=== PATIENT | male | born 1945 | race Two or more races ===

== ENCOUNTER 2018-05-15 10:50 | Inpatient (IN) | payer MEDICARE, MEDICAID ==
[~2018-05-15] VITALS: Ht 172.7 cm; Wt 97.3 kg
[2018-05-15] MEDS ORDERED: ONDANSETRON HCL 4MG/2ML INJ IV STA (11:47)
[2018-05-15] MEDS ORDERED: ASPIRIN 81MG TABLET PO ONE (12:00)
[2018-05-15] MEDS ORDERED: NITROGLYCERIN OINT 1GM/INCH UDPKT TD ONE (12:00)
[2018-05-15] MEDS ORDERED: FENTANYL CITRATE/PF 50MCG/ML 2ML VIAL IV ONE (12:00)
[2018-05-15 12:13] LABS: BASOPHILS % 0.2 % (0.0-2.0); EOSINOPHILS % 0.9 % (0.0-5.0); HEMATOCRIT. 43.7 % (42.0-52.0); HEMOGLOBIN. 14.7 g/dL (14.0-18.0); LYMPHOCYTES % 15.3 % (20.0-50.0); MEAN CORPUSCULAR VOLUME 88.9 fL (80.0-94.0); MEAN PLATELET VOLUME 10.8 fl (7.4-10.4); MONOCYTES % 7.9 % (2.0-8.0); NEUTROPHILS % 75.7 % (40.0-76.0); PLATELET 207 x1000/uL (130-400); RED BLOOD CELL COUNT 4.91 mill/uL (4.7-6.1); RED CELL DISTRIBUTION WIDTH 14.4 % (11.6-14.6)
[2018-05-15 12:19] LABS: CHLORIDE 106 mEq/L (98-107)
[2018-05-15 12:22] LABS: INR 1.1; PROTHROMBIN TIME 10.8 sec (9.1-11.1)
[2018-05-15 12:29] LABS: T4 FREE 1.13 ng/dL (0.76-1.46)
[2018-05-15] MEDS ORDERED: FUROSEMIDE 20MG/2ML VIAL IVP ONE (13:15)
[2018-05-15] MEDS ORDERED: GUAIFENESIN 200MG/10ML SUGAR FREE UDC PO PRN ×2 (13:45→15:45)
[2018-05-15] MEDS ORDERED: DIPHENHYDRAMINE 50MG/ML VIAL IV PRN ×2 (13:45→15:45)
[2018-05-15] MEDS ORDERED: ONDANSETRON HCL 4MG/2ML INJ IV PRN ×2 (13:45→15:45)
[2018-05-15] MEDS ORDERED: MAGNESIUM/ALUMINUM HYDROXIDE/SIMETHICONE 30ML UDC PO PRN ×2 (13:45→15:45)
[2018-05-15] MEDS ORDERED: CLONIDINE 0.1MG TABLET PO PRN ×2 (13:45→15:45)
[2018-05-15] MEDS ORDERED: LORAZEPAM 2MG/ML CPJ IV PRN (13:45)
[2018-05-15] MEDS ORDERED: DOCUSATE SODIUM 100MG CAPSULE PO PRN ×2 (13:45→15:45)
[2018-05-15] MEDS ORDERED: IPRATROPIUM/ALBUTEROL 0.5-3(2.5)MG/3ML NEB INH PRN ×2 (13:45→15:45)
[2018-05-15] MEDS ORDERED: ENOXAPARIN 40MG/0.4ML SYR SUBCUT SCH (13:45)
[2018-05-15] MEDS ORDERED: ACETAMINOPHEN 325MG TABLET PO PRN ×2 (13:45→15:45)
[2018-05-15] MEDS ORDERED: HYDROCODONE/ACETAMINOPHEN 10/325MG TABLET PO PRN (13:45)
[2018-05-15] MEDS ORDERED: HYDROMORPHONE HCL/PF 2MG/ML CPJ IV PRN (13:45)
[2018-05-15] MEDS ORDERED: DEXTROSE 50% WATER 50ML SYRINGE IV PRN ×2 (13:45→15:45)
[2018-05-15] MEDS ORDERED: SODIUM CHLORIDE 0.9% INJ 3ML FLUSH IVF SCH (14:00)
[2018-05-15 15:13] LABS: *AMPHETAMINES SCREEN URINE NEGATIVE (NEGATIVE); *BARBITURATES SCREEN URINE NEGATIVE (NEGATIVE); CANNABINOID URINE SCREEN NEGATIVE (NEGATIVE); OPIATES URINE SCREEN NEGATIVE (NEGATIVE); PHENCYCLIDINE URINE SCREEN NEGATIVE (NEGATIVE)
[2018-05-15 15:14] LABS: *BENZODIAZEPINES SCREEN URINE NEGATIVE (NEGATIVE); *COCAINE SCREEN URINE NEGATIVE (NEGATIVE); METHADONE URINE SCREEN NEGATIVE (NEGATIVE)
[2018-05-15 15:43] VITALS: BP 125/91
[2018-05-15] MEDS ORDERED: LORAZEPAM 0.5MG TABLET PO PRN (15:45)
[2018-05-15] MEDS ORDERED: HYDROCODONE/ACETAMINOPHEN 5/325MG TABLET PO PRN (15:45)
[2018-05-15] MEDS ORDERED: NA PHOS,M-B/NA PHOS,DI-BA ENEMA 118ML PR PRN (15:45)
[2018-05-15] MEDS ORDERED: ACETAMINOPHEN 650MG SUPP PR PRN (15:45)
[2018-05-15 16:00] VITALS: BP 125/91
[2018-05-15] MEDS ORDERED: ATOR-2 MT (16:01)
[2018-05-15] MEDS ORDERED: FURO20TA4 MT (16:01)
[2018-05-15] MEDS ORDERED: QUIN10TA28 MT (16:01)
[2018-05-15] MEDS ORDERED: DICL25TA2 MT (16:01)
[2018-05-15] MEDS ORDERED: ASPI-1158 MT (16:01)
[2018-05-15] MEDS ORDERED: METO-539 MT (16:01)
[2018-05-15] MEDS ORDERED: METF-815 MT (16:02)
[2018-05-15 16:13] VITALS: BP 125/91
[2018-05-15] MEDS: BLOOD SUGAR DIAGNOSTIC STRIP TEST SCH ×2 (16:54→20:55)
[2018-05-15] MEDS ORDERED: BLOOD SUGAR DIAGNOSTIC STRIP TEST SCH (17:00)
[2018-05-15] MEDS: ENOXAPARIN 30MG/0.3ML SYR SUBCUT SCH (17:27)
[2018-05-15] MEDS: INSULIN LISPRO 100 UNITS/ML SUBCUT SCH ×2 (17:28→20:55)
[2018-05-15] MEDS: PANTOPRAZOLE 40MG DR TABLET PO SCH (17:28)
[2018-05-15] MEDS ORDERED: INSULIN LISPRO 100 UNITS/ML SUBCUT SCH (17:40)
[2018-05-15 17:58] LABS: CREATINE KINASE 65 IU/L (39-308); CREATINE KINASE MB FRACTION < 1.0 ng/mL (0.5-3.6)
[2018-05-15 20:00] VITALS: BP 120/67
[2018-05-15] MEDS: AMLODIPINE 5MG TABLET PO SCH (21:15)
[2018-05-16] VITALS: BP 97/56
[2018-05-16 04:00] VITALS: BP 118/66
[2018-05-16] MEDS: ENOXAPARIN 30MG/0.3ML SYR SUBCUT SCH ×2 (05:10→16:19)
[2018-05-16] MEDS: PANTOPRAZOLE 40MG DR TABLET PO SCH (06:10)
[2018-05-16] MEDS: INSULIN LISPRO 100 UNITS/ML SUBCUT SCH ×4 (06:13→21:04)
[2018-05-16] MEDS: BLOOD SUGAR DIAGNOSTIC STRIP TEST SCH ×4 (06:13→20:51)
[2018-05-16 06:34] LABS: BASOPHILS % 0.5 % (0.0-2.0); EOSINOPHILS % 0.6 % (0.0-5.0); HEMATOCRIT. 40.6 % (42.0-52.0); HEMOGLOBIN. 13.8 g/dL (14.0-18.0); LYMPHOCYTES % 17.8 % (20.0-50.0); MEAN CORPUSCULAR HEMOGLOBIN 30.3 pg (28.0-32.0); MEAN PLATELET VOLUME 11.2 fl (7.4-10.4); MONOCYTES % 9.5 % (2.0-8.0); NEUTROPHILS % 71.6 % (40.0-76.0); PLATELET 168 x1000/uL (130-400); RED BLOOD CELL COUNT 4.56 mill/uL (4.7-6.1); RED CELL DISTRIBUTION WIDTH 14.7 % (11.6-14.6)
[2018-05-16 06:41] LABS: CHLORIDE 104 mEq/L (98-107)
[2018-05-16 06:53] LABS: HDL CHOLESTEROL 36 mg/dL (40-59); LDL CHOLESTEROL 82 mg/dL (5-100)
[2018-05-16 07:12] LABS: T4 FREE 1.21 ng/dL (0.76-1.46)
[2018-05-16 08:00] VITALS: BP 96/64
[2018-05-16] MEDS: AMLODIPINE 5MG TABLET PO SCH ×2 (08:45→11:44)
[2018-05-16] MEDS: ASPIRIN 81MG EC TABLET PO SCH (08:48)
[2018-05-16] MEDS ORDERED: ASPIRIN 81MG EC TABLET PO SCH (09:00)
[2018-05-16 11:00] LABS: CLARITY URINE CLEAR (CLEAR); COLOR URINE YELLOW (YELLOW); KETONES URINE NEGATIVE (NEGATIVE); LEUKOCYTE ESTERASE URINE NEGATIVE (NEGATIVE); NITRITE URINE NEGATIVE (NEGATIVE); OCCULT BLOOD URINE NEGATIVE (NEGATIVE); PROTEIN URINE NEGATIVE (NEGATIVE); SPECIFIC GRAVITY URINE 1.008 (1.005-1.030); UROBILINOGEN URINE 0.2 E.U./dL (0.2-1.0)
[2018-05-16 12:00] VITALS: BP 140/92
[2018-05-16] MEDS: METOPROLOL TARTRATE 25MG TABLET PO SCH ×2 (13:06→21:02)
[2018-05-16] MEDS: LOSARTAN POTASSIUM 25 MG TABLET PO SCH (13:07)
[2018-05-16 15:58] LABS: *AMPHETAMINES SCREEN URINE NEGATIVE (NEGATIVE); *BARBITURATES SCREEN URINE NEGATIVE (NEGATIVE); *BENZODIAZEPINES SCREEN URINE NEGATIVE (NEGATIVE)
[2018-05-16 15:59] LABS: *COCAINE SCREEN URINE NEGATIVE (NEGATIVE); CANNABINOID URINE SCREEN NEGATIVE (NEGATIVE); METHADONE URINE SCREEN NEGATIVE (NEGATIVE); OPIATES URINE SCREEN NEGATIVE (NEGATIVE); PHENCYCLIDINE URINE SCREEN NEGATIVE (NEGATIVE)
[2018-05-16 16:00] VITALS: BP 138/92
[2018-05-16 20:00] VITALS: BP 132/80
[2018-05-16] MEDS: ATORVASTATIN CALCIUM 20MG TABLET PO SCH (21:02)
[2018-05-17] VITALS: BP 114/67
[2018-05-17 04:00] VITALS: BP 122/69
[2018-05-17] MEDS: BLOOD SUGAR DIAGNOSTIC STRIP TEST SCH ×4 (05:55→20:03)
[2018-05-17] MEDS: ENOXAPARIN 30MG/0.3ML SYR SUBCUT SCH ×2 (06:04→19:03)
[2018-05-17] MEDS: PANTOPRAZOLE 40MG DR TABLET PO SCH (06:04)
[2018-05-17] MEDS: INSULIN LISPRO 100 UNITS/ML SUBCUT SCH ×4 (06:08→20:10)
[2018-05-17 07:32] LABS: BASOPHILS % 0.3 % (0.0-2.0); EOSINOPHILS % 0.7 % (0.0-5.0); HEMATOCRIT. 43.8 % (42.0-52.0); HEMOGLOBIN. 14.7 g/dL (14.0-18.0); LYMPHOCYTES % 16.3 % (20.0-50.0); MEAN CORPUSCULAR VOLUME 89.3 fL (80.0-94.0); MEAN PLATELET VOLUME 11.3 fl (7.4-10.4); MONOCYTES % 6.6 % (2.0-8.0); NEUTROPHILS % 76.1 % (40.0-76.0); PLATELET 169 x1000/uL (130-400); RED BLOOD CELL COUNT 4.91 mill/uL (4.7-6.1); RED CELL DISTRIBUTION WIDTH 14.5 % (11.6-14.6)
[2018-05-17 07:38] LABS: CHLORIDE 105 mEq/L (98-107)
[2018-05-17 07:57] LABS: HDL CHOLESTEROL 35 mg/dL (40-59); LDL CHOLESTEROL 80 mg/dL (5-100)
[2018-05-17 08:00] VITALS: BP 121/72
[2018-05-17] MEDS: LOSARTAN POTASSIUM 25 MG TABLET PO SCH (09:00)
[2018-05-17] MEDS: AMLODIPINE 5MG TABLET PO SCH (09:00)
[2018-05-17] MEDS: ASPIRIN 81MG EC TABLET PO SCH (09:25)
[2018-05-17] MEDS: METOPROLOL TARTRATE 25MG TABLET PO SCH ×2 (09:25→20:07)
[2018-05-17 11:51] VITALS: BP 130/70
[2018-05-17 16:00] VITALS: BP 130/71
[2018-05-17 20:00] VITALS: BP 115/61
[2018-05-17] MEDS: ATORVASTATIN CALCIUM 20MG TABLET PO SCH (20:07)
[2018-05-18] VITALS (9 sets, daily range): BP systolic 110–143; BP diastolic 63–94
[2018-05-18] MEDS: BLOOD SUGAR DIAGNOSTIC STRIP TEST SCH ×4 (05:21→20:50)
[2018-05-18] MEDS: PANTOPRAZOLE 40MG DR TABLET PO SCH (06:10)
[2018-05-18] MEDS: INSULIN LISPRO 100 UNITS/ML SUBCUT SCH ×4 (06:17→20:53)
[2018-05-18 07:47] LABS: BASOPHILS % 0.5 % (0.0-2.0); EOSINOPHILS % 1.2 % (0.0-5.0); HEMATOCRIT. 43.8 % (42.0-52.0); HEMOGLOBIN. 14.9 g/dL (14.0-18.0); LYMPHOCYTES % 23.1 % (20.0-50.0); MEAN CORPUSCULAR HEMOGLOBIN 30.2 pg (28.0-32.0); MEAN CORPUSCULAR VOLUME 88.7 fL (80.0-94.0); MEAN PLATELET VOLUME 11.2 fl (7.4-10.4); MONOCYTES % 8.9 % (2.0-8.0); NEUTROPHILS % 66.3 % (40.0-76.0); PLATELET 165 x1000/uL (130-400); RED BLOOD CELL COUNT 4.94 mill/uL (4.7-6.1); RED CELL DISTRIBUTION WIDTH 14.5 % (11.6-14.6)
[2018-05-18] MEDS ORDERED: DEXT 5%/0.45% NACL 1000ML 1,000 ML IV SCH (08:00)
[2018-05-18] MEDS ORDERED: DEXT 5%/0.9% NACL 500 ML IV SCH (08:00)
[2018-05-18 08:25] LABS: CHLORIDE 106 mEq/L (98-107)
[2018-05-18] MEDS: ASPIRIN 81MG EC TABLET PO SCH (09:00)
[2018-05-18] MEDS: LOSARTAN POTASSIUM 25 MG TABLET PO SCH (09:00)
[2018-05-18] MEDS: AMLODIPINE 5MG TABLET PO SCH (09:00)
[2018-05-18] MEDS: METOPROLOL TARTRATE 25MG TABLET PO SCH ×2 (09:00→20:52)
[2018-05-18] MEDS ORDERED: LIDOCAINE HCL 1% 20ML VIAL (Pyxis) INJ ONE (11:15)
[2018-05-18] MEDS ORDERED: IODIXANOL 320MG/ML 100 ML BOTTLE IV ONE ×2 (11:16→12:24)
[2018-05-18] MEDS ORDERED: ASPIRIN/SOD BICARB/CITRIC ACID 324MG TAB EFF ONE (11:16)
[2018-05-18] MEDS ORDERED: FENTANYL CITRATE/PF 50MCG/ML 2ML VIAL ONE (11:38)
[2018-05-18] MEDS ORDERED: MIDAZOLAM HCL 2 MG/2 ML VIAL ONE (11:38)
[2018-05-18] MEDS ORDERED: IOHEXOL-300 100 ML BOTTLE ONE (12:09)
[2018-05-18] MEDS ORDERED: ATROPINE SULFATE 1MG/10ML SYR IV PRN (12:30)
[2018-05-18] MEDS ORDERED: MORPHINE SULFATE 10 MG/ML CPJ IV PRN (12:30)
[2018-05-18] MEDS ORDERED: CLOPIDOGREL 75MG TABLET PO NR (12:30)
[2018-05-18] MEDS ORDERED: ACETAMINOPHEN 325MG TABLET PO PRN (12:30)
[2018-05-18] MEDS: SODIUM CHLORIDE 0.45% 1,000 ML IV NR ×2 (12:49→20:51)
[2018-05-18] MEDS ORDERED: HEPARIN SODIUM 1,000 UNIT/1ML VIAL IV ONE (15:15)
[2018-05-18] MEDS ORDERED: ADENOSINE 12MCG/ML 10ML VIAL (CATH LAB) IV ONE (16:06)
[2018-05-18] MEDS ORDERED: NICARDIPINE 100MCG/ML 10ML VIAL (CATH LAB) IV ONE (16:06)
[2018-05-18] MEDS ORDERED: NITROGLYCERIN 50MCG/ML 10ML VIAL (CATH LAB) IV ONE (16:06)
[2018-05-18] MEDS: ATORVASTATIN CALCIUM 20MG TABLET PO SCH (20:50)
[2018-05-19] VITALS (8 sets, daily range): BP systolic 110–161; BP diastolic 65–85
[2018-05-19 05:53] LABS: CHLORIDE 105 mEq/L (98-107)
[2018-05-19 06:04] LABS: BASOPHILS % 0.4 % (0.0-2.0); EOSINOPHILS % 2.4 % (0.0-5.0); HEMATOCRIT. 39.9 % (42.0-52.0); HEMOGLOBIN. 13.7 g/dL (14.0-18.0); LYMPHOCYTES % 13.6 % (20.0-50.0); MEAN CORPUSCULAR HEMOGLOBIN 30.4 pg (28.0-32.0); MEAN CORPUSCULAR VOLUME 88.6 fL (80.0-94.0); MEAN PLATELET VOLUME 11.2 fl (7.4-10.4); MONOCYTES % 10.5 % (2.0-8.0); NEUTROPHILS % 73.1 % (40.0-76.0); PLATELET 157 x1000/uL (130-400); RED BLOOD CELL COUNT 4.51 mill/uL (4.7-6.1); RED CELL DISTRIBUTION WIDTH 14.2 % (11.6-14.6)
[2018-05-19] MEDS: SODIUM CHLORIDE 0.45% 1,000 ML IV NR (07:04)
[2018-05-19] MEDS: PANTOPRAZOLE 40MG DR TABLET PO SCH (07:06)
[2018-05-19] MEDS: BLOOD SUGAR DIAGNOSTIC STRIP TEST SCH ×2 (07:06→11:48)
[2018-05-19] MEDS: INSULIN LISPRO 100 UNITS/ML SUBCUT SCH ×2 (07:20→11:48)
[2018-05-19] MEDS: LOSARTAN POTASSIUM 25 MG TABLET PO SCH (08:44)
[2018-05-19] MEDS: AMLODIPINE 5MG TABLET PO SCH (08:45)
[2018-05-19] MEDS: METOPROLOL TARTRATE 25MG TABLET PO SCH (08:45)
[2018-05-19] MEDS ORDERED: CLOPIDOGREL 75MG TABLET PO SCH (09:00)
[2018-05-19] MEDS ORDERED: ASPIRIN 325MG TABLET PO SCH (09:00)
== END 2018-05-19 12:12 | disposition home or self-care (01) | DRG 246 ==
LOC: EDBEDREQ 13:24 → EDBEDREQSVC 13:24 → ER 13:49 → 8WST 13:59 → EDBEDREQ 14:03 → ENRESERV 14:05 → SUPCPDRO 15:30 → 3WST 05-18 12:45
PROVIDERS: ADMIT Internal Medicine; ATTEND Internal Medicine
PROC: 4A023N7 Measurement of Cardiac Sampling and Pressure, Left Heart, Percutaneous Approach (ICD-10-PCS; principal; 2018-05-18)
PROC: 027034Z Dilation of Coronary Artery, One Artery with Drug-eluting Intraluminal Device, Percutaneous Approach (ICD-10-PCS; 2018-05-18)
PROC: B2111ZZ Fluoroscopy of Multiple Coronary Arteries using Low Osmolar Contrast (ICD-10-PCS; 2018-05-18)
PROC: B2151ZZ Fluoroscopy of Left Heart using Low Osmolar Contrast (ICD-10-PCS; 2018-05-18)
PROC: B2121ZZ Fluoroscopy of Single Coronary Artery Bypass Graft using Low Osmolar Contrast (ICD-10-PCS; 2018-05-18)
PROC: B2181ZZ Fluoroscopy of Left Internal Mammary Bypass Graft using Low Osmolar Contrast (ICD-10-PCS; 2018-05-18)
PROC: 4A033BC Measurement of Arterial Pressure, Coronary, Percutaneous Approach (ICD-10-PCS; 2018-05-18)
DX: T82.858A Stenosis of other vascular prosthetic devices, implants and grafts, initial encounter (principal); I50.43 Acute on chronic combined systolic (congestive) and diastolic (congestive) heart failure; I25.110 Atherosclerotic heart disease of native coronary artery with unstable angina pectoris; I11.0 Hypertensive heart disease with heart failure; I25.5 Ischemic cardiomyopathy; E78.00 Pure hypercholesterolemia, unspecified; I25.10 Atherosclerotic heart disease of native coronary artery without angina pectoris; E78.5 Hyperlipidemia, unspecified; E66.9 Obesity, unspecified; R79.1 Abnormal coagulation profile; E11.65 Type 2 diabetes mellitus with hyperglycemia; M19.90 Unspecified osteoarthritis, unspecified site; F17.210 Nicotine dependence, cigarettes, uncomplicated; Y83.2 Surgical operation with anastomosis, bypass or graft as the cause of abnormal reaction of the patient, or of later complication, without mention of misadventure at the time of the procedure; Y92.89 Other specified places as the place of occurrence of the external cause; I25.2 Old myocardial infarction; Z95.1 Presence of aortocoronary bypass graft; Z68.32 Body mass index [BMI] 32.0-32.9, adult; Z79.84 Long term (current) use of oral hypoglycemic drugs; Z79.82 Long term (current) use of aspirin; Z71.6 Tobacco abuse counseling
CPT/HCPCS: 36415; 71045; 78582; 80048; 80061; 80305; 82550; 82553; 82962; 83036; 83735; 83880; 84439; 84443; 84481; 84484; 85347; 85379; 92928; 93005; 93306; 93459; 93571; 93970; 96372; 96374; 97161; 99291; A9558; C1769; C1874; C1887; J0153; J1644; J1650; J1815; J1940; J2250; J2405; J3010; J3490; Q9967